=== PATIENT | female | born 1965 | race Caucasian/White ===

== ENCOUNTER 2017-04-12 07:00 | Day surgery (SDC) | payer MEDICAID, OTHER ==
[2017-04-09 14:40] LABS: BLOOD UREA NITROGEN 16 mg/dL (7-18)
[2017-04-09 14:44] LABS: ASPARTATE AMINO TRANSFERASE 18 U/L (15-37)
[~2017-04-12] VITALS: Ht 170.2 cm; Wt 131.7 kg
[~2017-04-12 07:00] MED LIST: CALCIUM PO; CHOL200024 PO; CYAN50008 PO; LISI-167 PO; MULT-516 PO; MULT-94 PO
[2017-04-12 07:25] VITALS: BP 124/82
[2017-04-12] MEDS ORDERED: LACTATED RINGERS 1,000 ML IV SCH (07:38)
[2017-04-12] MEDS ORDERED: LIDOCAINE 1%, 2ML SQ PRN (08:00)
[2017-04-12] MEDS ORDERED: MIDAZOLAM 1 MG/ML, 2ML ONE (09:03)
[2017-04-12] MEDS ORDERED: ONDANSETRON 2MG/ML, 2ML IVPush PRN (10:00)
[2017-04-12] MEDS ORDERED: KETOROLAC 30 MG/1 ML IV PRN (10:00)
[2017-04-12] MEDS ORDERED: ALBUTEROL SULFATE 2.5 MG/3 ML NPPB PRN (10:00)
[2017-04-12] MEDS ORDERED: ACETAMINOPHEN 325 MG TABLET PO PRN (10:00)
[2017-04-12] MEDS ORDERED: hydrALAzine 20 MG/ML, 1ML IV PRN (10:00)
[2017-04-12] MEDS ORDERED: EPHEDRINE 50 MG/ML, 1ML IVPush PRN (10:00)
[2017-04-12] MEDS ORDERED: HYDROcodone/APAP 7.5-325MG/15ML UDC PO PRN (10:00)
[2017-04-12] MEDS ORDERED: FENTANYL PF 100 MCG/2ML IV PRN (10:00)
[2017-04-12] MEDS ORDERED: MEPERIDINE/PF 25MG/0.5ML IVPush PRN (10:00)
[2017-04-12] MEDS ORDERED: METOPROLOL 1 MG/ML, 5ML IV PRN (10:00)
[2017-04-12] MEDS ORDERED: OXYcodone 5 MG/5 ML ORAL.SOL UDC PO PRN (10:00)
[2017-04-12] MEDS ORDERED: LABETALOL 5MG/ML, 20ML IV PRN (10:00)
[2017-04-12] MEDS ORDERED: HYDROmorphone 1 MG/ML, 1ML IV PRN (10:00)
== END 2017-04-12 11:00 ==
LOC: OUT 07:00
PROVIDERS: ATTEND Internal Medicine Gastroenterology
DX: D12.0 Benign neoplasm of cecum (principal); K57.30 Diverticulosis of large intestine without perforation or abscess without bleeding
CPT/HCPCS: 36415; 45385; 80053; 88305; J2250; J7120